=== PATIENT | male | born 1990 | race Caucasian/White ===

== ENCOUNTER 2019-02-19 21:41 | Emergency (ER) | payer OTHER, BC ==
[2019-02-19] MEDS ORDERED: Tetracaine HCl/PF 0.5% 4 ML Bottle EYEBOTH ONE (21:47)
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
== END 2019-02-19 22:10 | disposition home or self-care (01) ==
LOC: MW.ED 21:41
DX: S05.01XA Injury of conjunctiva and corneal abrasion without foreign body, right eye, initial encounter (principal); Z88.1 Allergy status to other antibiotic agents; X58.XXXA Exposure to other specified factors, initial encounter
CPT/HCPCS: 99283

== ENCOUNTER 2019-12-03 09:12 | Emergency (ER) | payer BC, OTHER ==
[2019-12-03] MEDS ORDERED: fentaNYL 50 MCG/ML SDV ONE (09:15)
[2019-12-03] MEDS ORDERED: Ondansetron 4 MG/2 ML SDV ONE (09:15)
[2019-12-03] MEDS ORDERED: Sodium Chloride 0.9% 1,000 ML IV ONE (09:22)
[2019-12-03] MEDS ORDERED: fentaNYL 50 MCG/ML SDV IVPUSH ONE ×2 (09:32→10:01)
[2019-12-03 09:53] LABS: BLOOD UREA NITROGEN,BUN 14 mg/dL (7.0-18.0); CARBON DIOXIDE,CO2 26.3 mmol/L (21.0-32.0); CHLORIDE,CL 102 mmol/L (98-107); GLUCOSE RANDOM 166 mg/dL (74-106); POTASSIUM,K 3.5 mmol/L (3.5-5.1); SODIUM,NA 138 mmol/L (136-148)
[2019-12-03] MEDS ORDERED: Ondansetron 4 MG/2 ML SDV IVPUSH ONE (10:02)
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
--- NOTE | 2019-12-03 10:10 | CT ---
CT cervical spine Technique: Multiple axial sections were obtained from above C1 inferiorly to the bottom of T2. Reconstructed sagittal and coronal images were reviewed. Comparison: No prior cervical spine imaging is available. Findings: Soft tissue air is noted anteriorly within the upper soft tissues of the chest. Vertebral body heights and disc spaces are maintained. Vertebral bodies and posterior arches are intact. No fracture is appreciated. No bony central or bony neural foraminal stenosis is seen. No subluxation is appreciated. Impression: 1. Nothing acute is appreciated on CT study of the cervical spine. Diagnostic code #1 This report was dictated in MDT
--- NOTE | 2019-12-03 10:15 | CT ---
CT chest Technique: Multiple axial sections were obtained from above the lung apices inferiorly through the lung bases. Intravenous contrast was utilized. Comparison: No prior chest imaging is available. Findings: Lungs show no acute parenchymal process. No pulmonary contusion or pleural effusions are identified. Mediastinum and hilar region show no adenopathy or mass. Aorta shows no aneurysm. No axillary adenopathy is appreciated. Bone window settings were reviewed which shows a burst fracture within T12. Severely retrolisthesis fragments are noted posteriorly into the central canal up to 1.5 cm which severely disrupts the width of the central canal and likely causes distal thoracic spinal cord damage. Fracture is noted within the right transverse process of L1. No other acute osseous abnormality is appreciated. Impression: 1. Burst fracture within the T12 vertebral body with severe retrolisthesis causing severe narrowing of the central canal diameter. This likely causes distal thoracic spinal cord injury. 2. Nondisplaced fracture within the right L1 transverse process. 3. Soft tissue air within the anterior upper chest raising the possibility of prior penetrating soft tissue trauma. 4. No other acute finding is appreciated. Diagnostic code #5 This report was dictated in MDT
--- NOTE | 2019-12-03 10:22 | CT ---
CT abdomen and pelvis Technique: Multiple axial sections were obtained from above the dome of the diaphragm inferiorly through the pubic symphysis. Intravenous contrast was utilized. No oral contrast has been given. Findings: Liver shows no discrete abnormality. Spleen appears within normal limits. Paraspinal soft tissue swelling/hematoma is noted at the level of a burst fracture involving T12. Aorta shows contrast enhancement without aneurysm. No retroperitoneal adenopathy or mesenteric abnormalities are seen. No pelvic mass or adenopathy is appreciated. No free fluid is seen. Kidneys show symmetric contrast enhancement. Kidneys show several small nonobstructing calculi. Pancreas appears within normal limits. Spleen appears normal. Gallbladder contains no calcified gallstones Bone window settings were reviewed. Burst fracture is again noted of T12 with retrolisthesis fragments severely narrowing the central canal. Minimally displaced fracture within the right transverse process of L1. No other acute osseous finding is appreciated. Impression: 1. Burst fracture of T12 severely narrowing the central canal. There is surrounding soft tissue hematoma/swelling within the paraspinal region. 2. Minimally displaced fracture within the right transverse process of L1. 3. Nothing acute is seen within the abdomen or pelvis. Diagnostic code #5 This report was dictated in MDT
--- NOTE | 2019-12-03 10:25 | CT ---
Head CT Technique: Multiple axial sections through the brain were obtained. Intravenous contrast was not utilized. Comparison: No prior intracranial imaging is available. Findings: Ventricles along with basal cisterns and sulci over the convexities are within normal limits for the patient's age. No abnormal parenchymal densities are seen. No evidence of intracranial hemorrhage. No midline shift or mass-effect is seen. Mucosal thickening is noted within both maxillary sinuses which is most likely chronic. No acute paranasal sinus finding is seen. No acute mastoid sinus finding is seen. No acute calvarial abnormality is appreciated. Impression: 1. Sinus findings most likely chronic. 2. No acute intracranial abnormality is appreciated. Diagnostic code #2 This report was dictated in MDT
[2019-12-03] MEDS ORDERED: Iopamidol 612 MG/ML 100 ML Bottle IVPUSH STA (10:27)
[2019-12-03] MEDS ORDERED: Iopamidol 755 Mg/ML 100 ML Bottle IVPUSH STA (10:28)
--- NOTE | 2019-12-03 10:34 | CT ---
CT lumbar spine Technique: Multiple axial sections were obtained from the top of T10 inferiorly through the bottom of L5-S1. Findings: Burst fracture is noted of L2. Significant retrolisthesis of fracture fragments into the central canal is seen which obliterates the central canal. Fracture fragments extend posteriorly up to 2.0 cm into the central canal. Loss of vertebral body height is noted. Fracture is noted within the right T11-12 apophyseal joint which involves the superior facet of T12. There is anterior subluxation of the apophyseal joint at T11 anterior to the apophyseal joint of T12 on the right side. Slight deformity is noted of the posterior ribs at the vertebral junction on the left side of T11 and T12 which likely represent rib fractures. Minimally displaced transverse process fracture on the right side at L1. No additional lumbar spine fracture is seen. No other findings of spondylolisthesis are seen Diffuse paraspinal hematoma and soft tissue swelling is seen around the T12 fracture. Impression: 1. Burst fracture of T12 with significant retrolisthesis of fracture fragments obliterating the central canal which is severe enough to disrupt the distal thoracic spinal cord. 2. Fracture within the superior apophyseal joint of T12 on the right side with the T11 apophyseal joint located anterior to the T12 apophyseal joint representing unilateral apophyseal dislocation. 3. Diffuse soft tissue swelling and hematoma around T12. 4. Minimally displaced transverse process fracture of L1. 5. Probable minimal rib fractures at the costovertebral junctions involving the left 11th and 12th ribs. Diagnostic code #5 This report was dictated in MDT
--- NOTE | 2019-12-03 10:45 | CT ---
Thoracic spine Technique: Multiple axial sections were obtained through the thoracic spine. Reconstructed coronal and sagittal images were obtained. Comparison: Burst fracture is noted of T12 with severe extension of fragments into the central canal. Apophyseal joint fracture and dislocation noted on the right side at T11-12. No additional thoracic spine fracture is appreciated. Slight deformity noted within the left ribs at the costovertebral junction of the 11th and 12th rib which are felt compatible with fractures. Impression: 1. Fractures within the posterior 11th and 12th ribs at the costovertebral junction. 2. Burst fracture involving T12 with displaced posterior fragments obliterating the central canal. 3. Right-sided apophyseal joint fracture with apophyseal joint dislocation at T11-12. Diagnostic code #5 This report was dictated in MDT
[2019-12-03] MEDS ORDERED: HYDROmorphone 1 MG/ML Syringe IVPUSH ONE (10:47)
[2019-12-03] MEDS ORDERED: Diphtheria,Pertussis(Acell),Tetanus Vaccine 0.5 ML Syringe IM ONE (11:00)
== END 2019-12-03 11:18 ==
LOC: MW.ED 09:12
DX: S22.081A Stable burst fracture of T11-T12 vertebra, initial encounter for closed fracture (principal); S10.93XA Contusion of unspecified part of neck, initial encounter; S60.512A Abrasion of left hand, initial encounter; S60.511A Abrasion of right hand, initial encounter; Z23 Encounter for immunization; Z88.1 Allergy status to other antibiotic agents; V48.5XXA Car driver injured in noncollision transport accident in traffic accident, initial encounter
CPT/HCPCS: 36415; 70450; 71260; 72125; 74177; 80053; 80307; 83735; 84484; 85025; 85610; 85730; 90471; 90715; 93005; 96361; 96374; 96375; 96376; 99285; J1170; J2405; J3010; J7030; Q9967; 72128; 72128-26; 72131; 72131-26; 99284

== ENCOUNTER 2020-05-03 16:12 | Emergency (ER) | payer MEDICAID ==
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
--- NOTE | 2020-05-03 17:08 | CR ---
INDICATION: Infection of right 2nd and 3rd toes. No feeling in the legs. Noticed infection 1 week ago. COMPARISON: None. TECHNIQUE: Right foot 3 views. FINDINGS: Bones are demineralized. Joint spaces are maintained. Soft tissues are unremarkable. No specific radiographic evidence of osteomyelitis. No acute fracture dislocation. IMPRESSION: No specific radiographic evidence of osteomyelitis. If there is ongoing clinical concern consider further evaluation with MRI. Dictated by Se Foster MD @ May 03 2020 5:06PM Signed by Dr. Se Foster @ May 03 2020 5:08PM
== END 2020-05-03 17:38 | disposition home or self-care (01) ==
LOC: MW.ED 16:12
DX: L89.892 Pressure ulcer of other site, stage 2 (principal); L08.9 Local infection of the skin and subcutaneous tissue, unspecified; Z88.0 Allergy status to penicillin
CPT/HCPCS: 73630-26-RT; 73630-RT; 99283; 99283-25

== ENCOUNTER 2020-10-10 22:24 | Emergency (ER) | payer MEDICAID ==
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
--- NOTE | 2020-10-10 23:52 | CR ---
INDICATION: Foot injury with deformity TECHNIQUE: Foot radiograph 3 views right COMPARISON: 05/03/2020 FINDINGS: Bone: No acute fractures or aggressive bone lesions are identified. Patchy osteopenia is noted within the foot and similar to prior exam. Joint: The visualized hindfoot, midfoot, and forefoot joints are unremarkable in appearance. No significant ankle effusion is seen. Soft tissue: Unremarkable. No radiopaque foreign bodies are seen. Miscellaneous: Mild subcutaneous edema is present along the dorsal midfoot. IMPRESSION: 1. No acute osseous injuries or abnormalities are noted. Dictated by Ousmane Macedo MD @ 10/10/2020 11:50:18 PM Dictated by: Ousmane Macedo MD @ 10/10/2020 23:50:22 (Electronically Signed)
--- NOTE | 2020-10-10 23:54 | CR ---
INDICATION: Tibia injury with deformity TECHNIQUE: Tibia-fibula radiograph 2 views right COMPARISON: None FINDINGS: Bone: Patchy osteopenia present in the periarticular regions of the knee and ankle. There is a transverse, nondisplaced fracture present of the lateral malleolus. Joint: The visualized knee and ankle joints are unremarkable. No significant joint effusion is seen. Soft tissue: Unremarkable. No radiopaque foreign bodies are seen. IMPRESSION: 1. There is a transverse, nondisplaced fracture present of the lateral malleolus. Dictated by Ousmane Macedo MD @ 10/10/2020 11:52:02 PM Dictated by: Ousmane Macedo MD @ 10/10/2020 23:52:09 (Electronically Signed)
== END 2020-10-11 01:00 | disposition home or self-care (01) ==
LOC: MW.ED 22:24
DX: S82.64XA Nondisplaced fracture of lateral malleolus of right fibula, initial encounter for closed fracture (principal); Z88.0 Allergy status to penicillin; W05.0XXA Fall from non-moving wheelchair, initial encounter
CPT/HCPCS: 73590-26-RT; 73590-RT; 73630-26-RT; 73630-RT; 99283; 99283-25

== ENCOUNTER 2022-10-18 22:16 | Emergency (ER) | payer BC, MEDICARE, OTHER ==
[2022-10-18] MEDS ORDERED: Sodium Chloride 0.9% 10 ML Syringe FLUSH PRN (22:50)
[2022-10-18] MEDS ORDERED: Sodium Chloride 0.9% 2.5 ML Syringe FLUSH PRN (22:50)
[2022-10-18] MEDS ORDERED: Cefepime 2 GM in Sodium Chloride 0.9% 50 ML IV ONE (22:52)
[2022-10-18] MEDS ORDERED: VANCOmycin 2 GM/400 ML 400 ML IV ONE (23:00)
[2022-10-18 23:29] LABS: BASOPHILS PERCENT AUTO 0.1 % (0.0-1.5); HEMATOCRIT 42.4 % (38.0-50.0); HEMOGLOBIN 14.5 g/dL (13.0-17.0); LYMPHOCYTES ABSOLUTE AUTO 1.1 K/uL (0.6-2.4); LYMPHOCYTES PERCENT AUTO 4.3 % (16.0-40.0); MEAN CORPUSCULAR HEMOGLOBIN 29.2 pg (27.0-32.0); MEAN CORPUSCULAR HGB CONC 34.2 g/dL (31.0-37.0); MEAN CORPUSCULAR VOLUME 85.5 fL (80.0-98.0); MONOCYTES ABSOLUTE AUTO 0.9 K/uL (0.0-0.8); MONOCYTES PERCENT AUTO 3.5 % (0.0-15.0); NEUTROPHILS ABSOLUTE AUTO 22.5 K/uL (1.4-5.7); NEUTROPHILS PERCENT AUTO 92.1 % (48.0-80.0); NRBC ABSOLUTE 0 K/uL; PLATELET COUNT,PLT 216 K/uL (150-400); RED BLOOD CELL COUNT 4.96 M/uL (4.50-5.90); WHITE BLOOD CELL COUNT,WBC 24.46 K/uL (4.0-11.0)
[2022-10-18 23:47] LABS: INR 1.34 (0.86-1.11)
[2022-10-18 23:52] LABS: A/G RATIO 0.5 (0.9-1.6); ALBUMIN 2.6 g/dL (3.4-5.0); BILIRUBIN TOTAL 1.2 mg/dL (0.2-1.0); CALCIUM 8.5 mg/dL (8.5-10.1); CARBON DIOXIDE,CO2 27.7 mmol/L (21.0-32.0); EST CRCL DRUG DOSING (CG) 86.93 mL/min; POTASSIUM,K 3.7 mmol/L (3.5-5.1); PROTEIN TOTAL,TP 7.4 g/dL (6.4-8.2)
[2022-10-18 23:57] LABS: LACTIC ACID 2.4 mmol/L (0.4-2.0)
[2022-10-19] MEDS ORDERED: metroNIDAZOLE/Normal Saline 500 MG in Premix Bag 1 BAG IV ONE (00:17)
[2022-10-19] MEDS ORDERED: Sodium Chloride 0.9% 1,000 ML IV ONE ×2 (00:36→02:51)
[2022-10-19] MEDS ORDERED: Acetaminophen 500 MG Tab PO ONE (02:50)
[2022-10-19] MEDS ORDERED: Sodium Chloride 0.9% 1,000 ML IV SCH (03:00)
[2022-10-19 05:29] LABS: APPEARANCE,URINE CLEAR; BILIRUBIN,URINE NEGATIVE (NEGATIVE); COLOR,URINE YELLOW; GLUCOSE,URINE NEGATIVE (NEGATIVE); KETONES,URINE 40 mg/dL (NEGATIVE); LEUKOCYTE ESTERASE,URINE NEGATIVE (NEGATIVE); NITRITE,URINE NEGATIVE (NEGATIVE); OCCULT BLOOD,URINE SMALL (NEGATIVE); PH,URINE 5.5 (5.0-8.0); PROTEIN,URINE TRACE mg/dL (NEGATIVE); UROBILINOGEN,URINE 0.2 EU/dL (<2.0)
[2022-10-19 05:46] LABS: BACTERIA,URINE FEW (NEGATIVE); EPITHELIAL CELLS,URINE FEW (NONE-FEW); WBC,URINE 0-2 (0-5/HPF)
[2022-10-19] MEDS ORDERED: VANCOmycin 1.25 GM/250 ML 250 ML IV SCH (11:00)
== END 2022-10-19 05:44 ==
LOC: MW.ED 22:16
DX: M72.6 Necrotizing fasciitis (principal); L89.319 Pressure ulcer of right buttock, unspecified stage; G82.20 Paraplegia, unspecified; F17.210 Nicotine dependence, cigarettes, uncomplicated; Z88.0 Allergy status to penicillin
CPT/HCPCS: 36415; 71045; 74177; 80053; 81001; 83605; 85025; 85610; 87040; 96361; 96365; 96366; 96367; 96368; 99285; A9270; J0692; J3370; J3490; J7030; 99284

== ENCOUNTER 2022-12-13 14:38 | Emergency (ER) | payer BC, MEDICARE ==
[2022-12-13] MEDS ORDERED: Sodium Chloride 0.9% 10 ML Syringe FLUSH PRN (15:04)
[2022-12-13] MEDS ORDERED: Sodium Chloride 0.9% 2.5 ML Syringe FLUSH PRN (15:04)
[2022-12-13] MEDS ORDERED: Meropenem 1 GM in Sodium Chloride 0.9% 100 ML IV ONE ×2 (15:04→16:00)
[2022-12-13 15:32] LABS: APPEARANCE,URINE CLEAR; BILIRUBIN,URINE NEGATIVE (NEGATIVE); COLOR,URINE YELLOW; GLUCOSE,URINE NEGATIVE (NEGATIVE); KETONES,URINE NEGATIVE (NEGATIVE); LEUKOCYTE ESTERASE,URINE NEGATIVE (NEGATIVE); NITRITE,URINE NEGATIVE (NEGATIVE); OCCULT BLOOD,URINE NEGATIVE (NEGATIVE); PROTEIN,URINE NEGATIVE (NEGATIVE); UROBILINOGEN,URINE 0.2 EU/dL (<2.0)
[2022-12-13] MEDS ORDERED: Acetaminophen 500 MG Tab PO ONE (15:35)
[2022-12-13 15:44] LABS: BASOPHILS PERCENT AUTO 0.2 % (0.0-1.5); EOSINOPHILS ABSOLUTE AUTO 0.1 K/uL (0.0-0.7); EOSINOPHILS PERCENT AUTO 0.5 % (0.0-7.0); HEMATOCRIT 41.6 % (38.0-50.0); HEMOGLOBIN 13.3 g/dL (13.0-17.0); LYMPHOCYTES ABSOLUTE AUTO 1.5 K/uL (0.6-2.4); LYMPHOCYTES PERCENT AUTO 10.8 % (16.0-40.0); MEAN CORPUSCULAR HEMOGLOBIN 27.3 pg (27.0-32.0); MEAN CORPUSCULAR VOLUME 85.4 fL (80.0-98.0); MONOCYTES ABSOLUTE AUTO 0.6 K/uL (0.0-0.8); NEUTROPHILS ABSOLUTE AUTO 11.7 K/uL (1.4-5.7); NEUTROPHILS PERCENT AUTO 84.5 % (48.0-80.0); NRBC ABSOLUTE 0 K/uL; PLATELET COUNT,PLT 483 K/uL (150-400); RED BLOOD CELL COUNT 4.87 M/uL (4.50-5.90); WHITE BLOOD CELL COUNT,WBC 13.84 K/uL (4.0-11.0)
[2022-12-13 15:56] LABS: BACTERIA,URINE RARE (NEGATIVE); EPITHELIAL CELLS,URINE OCCASIONAL (NONE-FEW); MUCUS,URINE LIGHT (NONE-MOD); RBC,URINE 0-2 (0-2/HPF)
[2022-12-13 16:18] LABS: A/G RATIO 0.6 (0.9-1.6); BILIRUBIN TOTAL 0.5 mg/dL (0.2-1.0); C-REACTIVE PROTEIN 4.3 mg/dL (0.00-0.90); CALCIUM 8.7 mg/dL (8.5-10.1); CARBON DIOXIDE,CO2 27.2 mmol/L (21.0-32.0); CREATININE 0.7 mg/dL (0.8-1.3); EST CRCL DRUG DOSING (CG) 123.06 mL/min; POTASSIUM,K 4.1 mmol/L (3.5-5.1); PROTEIN TOTAL,TP 8.2 g/dL (6.4-8.2)
[2022-12-13 16:21] LABS: LACTIC ACID 1.9 mmol/L (0.4-2.0)
== END 2022-12-13 18:07 ==
LOC: MW.ED 14:38
DX: A41.9 Sepsis, unspecified organism (principal); Z88.0 Allergy status to penicillin
CPT/HCPCS: 36415; 71045; 80053; 81001; 83605; 84145; 85025; 85610; 86140; 87040; 93005; 96365; 99291; 99292; A9270; J2185; J3490; J7030; 93010

== ENCOUNTER 2022-12-31 00:48 | Emergency (ER) | payer MEDICARE ==
[2022-12-31] MEDS ORDERED: Sodium Chloride 0.9% 1,000 ML IV ONE ×3 (03:32→03:37)
[2022-12-31] MEDS ORDERED: Sodium Chloride 0.9% 10 ML Syringe FLUSH PRN (03:32)
[2022-12-31] MEDS ORDERED: Sodium Chloride 0.9% 2.5 ML Syringe FLUSH PRN (03:32)
[2022-12-31] MEDS ORDERED: Cefepime 2 GM Vial IVPUSH ONE (03:35)
[2022-12-31] MEDS ORDERED: Acetaminophen 500 MG Tab PO ONE (03:38)
[2022-12-31 03:44] LABS: HEMATOCRIT 40.4 % (38.0-50.0); HEMOGLOBIN 13.2 g/dL (13.0-17.0); MEAN CORPUSCULAR HEMOGLOBIN 27.2 pg (27.0-32.0); MEAN CORPUSCULAR HGB CONC 32.7 g/dL (31.0-37.0); MEAN CORPUSCULAR VOLUME 83.1 fL (80.0-98.0); NRBC ABSOLUTE 0 K/uL; PLATELET COUNT,PLT 393 K/uL (150-400); RED BLOOD CELL COUNT 4.86 M/uL (4.50-5.90); WHITE BLOOD CELL COUNT,WBC 18.66 K/uL (4.0-11.0)
[2022-12-31 03:52] LABS: INR 1.02 (0.86-1.11)
[2022-12-31 03:59] LABS: A/G RATIO 0.7 (0.9-1.6); ALBUMIN 3.1 g/dL (3.4-5.0); BILIRUBIN TOTAL 0.8 mg/dL (0.2-1.0); CALCIUM 8.7 mg/dL (8.5-10.1); CARBON DIOXIDE,CO2 26.6 mmol/L (21.0-32.0); CREATININE 0.7 mg/dL (0.8-1.3); EST CRCL DRUG DOSING (CG) 123.06 mL/min; POTASSIUM,K 3.8 mmol/L (3.5-5.1); PROTEIN TOTAL,TP 7.7 g/dL (6.4-8.2)
[2022-12-31] MEDS ORDERED: VANCOmycin 1.75 GM/350 ML 350 ML IV ONE (04:00)
[2022-12-31 04:04] LABS: C-REACTIVE PROTEIN 14.5 mg/dL (0.00-0.90)
[2022-12-31 04:23] LABS: BAND ABSOLUTE MAN 0.2; BAND PERCENT MAN 1 %; LYMPHOCYTES ABSOLUTE MAN 2.1 (0.6-2.4); LYMPHOCYTES PERCENT MAN 11 % (16.0-40.0); MONOCYTES ABSOLUTE MAN 1.3 (0.0-0.8); MONOCYTES PERCENT MAN 7 % (0.0-15.0); SEG NEUTROPHILS ABSOLUTE MAN 15.1 (1.4-5.7); SEG NEUTROPHILS PERCENT MAN 81 % (48.0-80.0)
[2022-12-31] MEDS ORDERED: Water For Injection, Sterile 20 ML ONE (04:33)
[2022-12-31] MEDS ORDERED: Iopamidol 755 MG/ML 500 ML Multipack Bottle IVPUSH STA (04:37)
[2022-12-31 05:06] LABS: APPEARANCE,URINE SLT CLOUDY; BILIRUBIN,URINE NEGATIVE (NEGATIVE); GLUCOSE,URINE NEGATIVE (NEGATIVE); KETONES,URINE NEGATIVE (NEGATIVE); LEUKOCYTE ESTERASE,URINE NEGATIVE (NEGATIVE); NITRITE,URINE NEGATIVE (NEGATIVE); OCCULT BLOOD,URINE NEGATIVE (NEGATIVE); PROTEIN,URINE NEGATIVE (NEGATIVE); UROBILINOGEN,URINE 0.2 EU/dL (<2.0)
[2022-12-31 05:08] LABS: COLOR,URINE AMBER
[2022-12-31] MEDS ORDERED: cefTRIAXone 500 MG in Lidocaine 1% 1 ML IM ONE (07:54)
[2022-12-31] MEDS ORDERED: metroNIDAZOLE/Normal Saline 500 MG in Premix Bag 1 BAG IV SCH (08:30)
[2022-12-31] MEDS ORDERED: Naloxone 0.4 MG/ML SDV IVPUSH PRN (12:30)
[2022-12-31] MEDS ORDERED: Morphine 2 MG/ML SYRINGE IVPUSH ONE (12:30)
[2022-12-31] MEDS ORDERED: Ondansetron 4 MG/2 ML SDV IVPUSH ONE (12:31)
== END 2022-12-31 12:52 ==
LOC: MW.ED 00:48
DX: A41.9 Sepsis, unspecified organism (principal); M86.28 Subacute osteomyelitis, other site; Z88.0 Allergy status to penicillin
CPT/HCPCS: 36415; 71045; 74177; 80053; 81003; 83605; 83690; 85025; 85610; 86140; 87040; 87070; 87075; 87205; 96365; 96366; 96367; 96375; 99291; A9270; J0692; J2270; J2405; J3370; J3490; J7030; Q9967; 99285

== ENCOUNTER 2023-08-09 12:52 | Observation (INO) | payer MEDICARE ==
[2023-08-09] MEDS: Sodium Chloride 0.9% 1,000 ML IV ONE (14:07)
[2023-08-09] MEDS: Sodium Chloride 0.9% 2.5 ML Syringe FLUSH PRN (14:07)
[2023-08-09] MEDS: Sodium Chloride 0.9% 10 ML Syringe FLUSH PRN (14:07)
[2023-08-09 14:15] LABS: BASOPHILS ABSOLUTE AUTO 0.02 K/uL (0.00-0.20); BASOPHILS PERCENT AUTO 0.2 % (0.0-1.0); EOSINOPHILS ABSOLUTE AUTO 0.03 K/uL (0.00-0.45); EOSINOPHILS PERCENT AUTO 0.3 % (0.0-6.0); HEMATOCRIT 42.7 % (42.0-52.0); HEMOGLOBIN 14.6 g/dL (14.0-18.0); IMMATURE GRAN ABSOLUTE AUTO 0.05 K/uL (0.00-0.05); IMMATURE GRAN PERCENT AUTO 0.5 % (0.0-0.4); LYMPHOCYTES ABSOLUTE AUTO 1.12 K/uL (1.00-4.80); LYMPHOCYTES PERCENT AUTO 10.3 % (24.0-44.0); MEAN CORPUSCULAR HEMOGLOBIN 27.8 pg (28.0-32.0); MEAN CORPUSCULAR HGB CONC 34.2 g/dL (32.0-36.0); MEAN CORPUSCULAR VOLUME 81.2 fL (83.0-99.0); MEAN PLATELET VOLUME 9.3 fL (9.4-12.4); MONOCYTES ABSOLUTE AUTO 0.42 K/uL (0.00-0.80); MONOCYTES PERCENT AUTO 3.9 % (0.0-8.0); NEUTROPHILS ABSOLUTE AUTO 9.25 K/uL (1.80-7.70); NEUTROPHILS PERCENT AUTO 84.8 % (41.0-71.0); PLATELET COUNT,PLT 216 K/uL (150-400); RED BLOOD CELL COUNT 5.26 M/uL (4.52-5.90); WHITE BLOOD CELL COUNT,WBC 10.89 K/uL (3.9-11.3)
[2023-08-09 14:34] LABS: INR 1.12 (0.86-1.11)
[2023-08-09 14:43] LABS: A/G RATIO 0.7 (0.9-1.6); ALBUMIN 3.2 g/dL (3.4-5.0); BILIRUBIN TOTAL 1.1 mg/dL (0.2-1.0); CALCIUM 9.3 mg/dL (8.5-10.1); CARBON DIOXIDE,CO2 24.2 mmol/L (21.0-32.0); CREATININE 0.8 mg/dL (0.8-1.3); EST CRCL DRUG DOSING (CG) 112.03 mL/min; POTASSIUM,K 3.7 mmol/L (3.5-5.1); PROTEIN TOTAL,TP 7.8 g/dL (6.4-8.2)
[2023-08-09 14:47] LABS: LACTIC ACID 1.5 mmol/L (0.4-2.0)
[2023-08-09 15:17] LABS: APPEARANCE,URINE CLEAR; BILIRUBIN,URINE NEGATIVE (NEGATIVE); COLOR,URINE YELLOW; GLUCOSE,URINE NEGATIVE (NEGATIVE); KETONES,URINE NEGATIVE (NEGATIVE); LEUKOCYTE ESTERASE,URINE NEGATIVE (NEGATIVE); NITRITE,URINE NEGATIVE (NEGATIVE); OCCULT BLOOD,URINE TRACE-INTACT (NEGATIVE); PROTEIN,URINE TRACE mg/dL (NEGATIVE)
[2023-08-09 15:30] LABS: BACTERIA,URINE RARE (NEGATIVE); EPITHELIAL CELLS,URINE MODERATE (NONE-FEW); WBC,URINE 0-1 (0-5/HPF)
[2023-08-09] MEDS: Iopamidol 755 MG/ML 500 ML Multipack Bottle IVPUSH STA (15:41)
[2023-08-09 15:42] LABS: C-REACTIVE PROTEIN 31.16 mg/dL (<0.3)
[2023-08-09] MEDS: Cefepime 2 GM in Sodium Chloride 0.9% 50 ML IV ONE (18:09)
[2023-08-09] MEDS: VANCOmycin 1.5 GM/300 ML 1.5 GM in Premix Bag 1 BAG IV ONE (18:29)
[2023-08-09] MEDS ORDERED: Polyethylene Glycol 3350 Powder 17 GM Packet PO PRN (19:05)
[2023-08-09] MEDS ORDERED: Acetaminophen 325 MG Tab PO PRN (19:05)
[2023-08-09] MEDS ORDERED: Albuterol/Ipratropium 3.0-0.5 MG/3 ML Neb Soln NEB PRN (19:05)
[2023-08-09] MEDS ORDERED: Ondansetron 4 MG Tab.DIS PO PRN (19:05)
[2023-08-09] MEDS ORDERED: 50% Dextrose in Water 50 ML Syringe IVPUSH PRN (19:10)
[2023-08-09] MEDS ORDERED: Glucagon,Human Recombinant 1 MG Vial IM PRN (19:10)
[2023-08-09] MEDS ORDERED: Enoxaparin 40 MG/0.4 ML Syringe SUBCUT SCH (19:15)
[2023-08-09] MEDS ORDERED: Piperacillin/Tazobactam 4.5 GM in Sodium Chloride 0.9% 100 ML IV SCH (19:15)
[2023-08-09] MEDS: Sodium Chloride 0.9% 1,000 ML IV SCH (20:30)
[2023-08-09] MEDS: Piperacillin/Tazobactam 4.5 GM in Sodium Chloride 0.9% 100 ML IV ONE (20:31)
[2023-08-10] MEDS: Piperacillin/Tazobactam 4.5 GM in Sodium Chloride 0.9% 100 ML IV SCH (00:43)
[2023-08-10] MEDS: Acetaminophen/HYDROcodone 325-10 MG Tab PO PRN (03:45)
[2023-08-10] MEDS: VANCOmycin 1.5 GM/300 ML 1.5 GM in Premix Bag 1 BAG IV SCH (06:10)
[2023-08-10 06:11] LABS: BASOPHILS ABSOLUTE AUTO 0.04 K/uL (0.00-0.20); BASOPHILS PERCENT AUTO 0.5 % (0.0-1.0); EOSINOPHILS ABSOLUTE AUTO 0.14 K/uL (0.00-0.45); EOSINOPHILS PERCENT AUTO 1.7 % (0.0-6.0); HEMATOCRIT 40.7 % (42.0-52.0); HEMOGLOBIN 13.6 g/dL (14.0-18.0); IMMATURE GRAN ABSOLUTE AUTO 0.03 K/uL (0.00-0.05); IMMATURE GRAN PERCENT AUTO 0.4 % (0.0-0.4); LYMPHOCYTES ABSOLUTE AUTO 1.29 K/uL (1.00-4.80); LYMPHOCYTES PERCENT AUTO 16.1 % (24.0-44.0); MEAN CORPUSCULAR HGB CONC 33.4 g/dL (32.0-36.0); MEAN CORPUSCULAR VOLUME 83.7 fL (83.0-99.0); MEAN PLATELET VOLUME 9.5 fL (9.4-12.4); MONOCYTES ABSOLUTE AUTO 0.42 K/uL (0.00-0.80); MONOCYTES PERCENT AUTO 5.2 % (0.0-8.0); NEUTROPHILS ABSOLUTE AUTO 6.11 K/uL (1.80-7.70); NEUTROPHILS PERCENT AUTO 76.1 % (41.0-71.0); PLATELET COUNT,PLT 206 K/uL (150-400); RED BLOOD CELL COUNT 4.86 M/uL (4.52-5.90); WHITE BLOOD CELL COUNT,WBC 8.03 K/uL (3.9-11.3)
[2023-08-10 06:38] LABS: A/G RATIO 0.6 (0.9-1.6); ALBUMIN 2.7 g/dL (3.4-5.0); BILIRUBIN TOTAL 0.8 mg/dL (0.2-1.0); CALCIUM 8.7 mg/dL (8.5-10.1); CARBON DIOXIDE,CO2 25.8 mmol/L (21.0-32.0); CREATININE 0.9 mg/dL (0.8-1.3); EST CRCL DRUG DOSING (CG) 99.58 mL/min; PROTEIN TOTAL,TP 6.9 g/dL (6.4-8.2)
[2023-08-10] MEDS: Enoxaparin 40 MG/0.4 ML Syringe SUBCUT SCH (08:11)
[2023-08-10] MEDS: Insulin Aspart 100 Units/ML 3 ML Pen SUBCUT SCH (08:11)
[2023-08-10] MEDS: Insulin Glargine,Hum.Rec.Anlog 100 UNIT/ML 3 ML Pen SUBCUT SCH (15:05)
[2023-08-11 06:50] LABS: BASOPHILS ABSOLUTE AUTO 0.03 K/uL (0.00-0.20); BASOPHILS PERCENT AUTO 0.5 % (0.0-1.0); EOSINOPHILS ABSOLUTE AUTO 0.22 K/uL (0.00-0.45); HEMATOCRIT 40.4 % (42.0-52.0); HEMOGLOBIN 13.8 g/dL (14.0-18.0); IMMATURE GRAN ABSOLUTE AUTO 0.03 K/uL (0.00-0.05); IMMATURE GRAN PERCENT AUTO 0.5 % (0.0-0.4); LYMPHOCYTES ABSOLUTE AUTO 1.51 K/uL (1.00-4.80); LYMPHOCYTES PERCENT AUTO 27.6 % (24.0-44.0); MEAN CORPUSCULAR HEMOGLOBIN 28.3 pg (28.0-32.0); MEAN CORPUSCULAR HGB CONC 34.2 g/dL (32.0-36.0); MEAN PLATELET VOLUME 9.7 fL (9.4-12.4); MONOCYTES ABSOLUTE AUTO 0.27 K/uL (0.00-0.80); MONOCYTES PERCENT AUTO 4.9 % (0.0-8.0); NEUTROPHILS ABSOLUTE AUTO 3.42 K/uL (1.80-7.70); NEUTROPHILS PERCENT AUTO 62.5 % (41.0-71.0); PLATELET COUNT,PLT 250 K/uL (150-400); RED BLOOD CELL COUNT 4.87 M/uL (4.52-5.90); WHITE BLOOD CELL COUNT,WBC 5.48 K/uL (3.9-11.3)
[2023-08-11 07:30] LABS: A/G RATIO 0.7 (0.9-1.6); ALBUMIN 2.7 g/dL (3.4-5.0); BILIRUBIN TOTAL 0.6 mg/dL (0.2-1.0); CALCIUM 8.2 mg/dL (8.5-10.1); CARBON DIOXIDE,CO2 23.1 mmol/L (21.0-32.0); CREATININE 0.8 mg/dL (0.8-1.3); EST CRCL DRUG DOSING (CG) 112.03 mL/min; POTASSIUM,K 3.7 mmol/L (3.5-5.1); PROTEIN TOTAL,TP 6.8 g/dL (6.4-8.2)
== END 2023-08-11 14:05 | disposition home or self-care (01) ==
LOC: MW.ED 12:52 → MW.MS 19:03 → INTOOBSV 19:03
PROVIDERS: ADMIT Family Medicine; ATTEND Family Medicine
DX: L89.44 Pressure ulcer of contiguous site of back, buttock and hip, stage 4 (principal); L02.31 Cutaneous abscess of buttock; L03.317 Cellulitis of buttock; E11.9 Type 2 diabetes mellitus without complications; Z79.4 Long term (current) use of insulin; Z79.899 Other long term (current) drug therapy; Z88.0 Allergy status to penicillin
CPT/HCPCS: 36415; 71045; 74177; 80053; 80202; 81001; 82947; 83605; 83690; 85025; 85610; 85652; 86140; 87040; 96361; 96365; 96366; 96367; 96372; 99285; A9270; G0378; J0692; J1650; J1815; J2543; J3370; J3490; J7030; Q9967; 99222; 99232; 99239; 99284

== ENCOUNTER 2024-04-15 15:28 | Emergency (ER) | payer MEDICARE, OTHER ==
[2024-04-15] MEDS: Sodium Chloride 0.9% 1,000 ML IV SCH (17:15)
[2024-04-15] MEDS: cefTRIAXone 2 GM in Sodium Chloride 0.9% 50 ML IV ONE (17:15)
[2024-04-15 17:29] LABS: BASOPHILS ABSOLUTE AUTO 0.02 K/uL (0.00-0.20); BASOPHILS PERCENT AUTO 0.2 % (0.0-1.0); EOSINOPHILS ABSOLUTE AUTO 0.07 K/uL (0.00-0.45); EOSINOPHILS PERCENT AUTO 0.7 % (0.0-6.0); HEMATOCRIT 42.7 % (42.0-52.0); HEMOGLOBIN 14.5 g/dL (14.0-18.0); IMMATURE GRAN ABSOLUTE AUTO 0.03 K/uL (0.00-0.05); IMMATURE GRAN PERCENT AUTO 0.3 % (0.0-0.4); LYMPHOCYTES ABSOLUTE AUTO 1.43 K/uL (1.00-4.80); LYMPHOCYTES PERCENT AUTO 14.5 % (24.0-44.0); MEAN CORPUSCULAR HEMOGLOBIN 28.2 pg (28.0-32.0); MEAN CORPUSCULAR VOLUME 83.1 fL (83.0-99.0); MONOCYTES ABSOLUTE AUTO 0.76 K/uL (0.00-0.80); MONOCYTES PERCENT AUTO 7.7 % (0.0-8.0); NEUTROPHILS ABSOLUTE AUTO 7.53 K/uL (1.80-7.70); NEUTROPHILS PERCENT AUTO 76.6 % (41.0-71.0); PLATELET COUNT,PLT 271 K/uL (150-400); RED BLOOD CELL COUNT 5.14 M/uL (4.52-5.90); WHITE BLOOD CELL COUNT,WBC 9.84 K/uL (3.9-11.3)
[2024-04-15 17:52] LABS: A/G RATIO 0.5 (0.9-1.6); ALBUMIN 2.7 g/dL (3.4-5.0); BILIRUBIN TOTAL 0.6 mg/dL (0.2-1.0); CALCIUM 9.1 mg/dL (8.5-10.1); CARBON DIOXIDE,CO2 28.9 mmol/L (21.0-32.0); CREATININE 0.7 mg/dL (0.8-1.3); EST CRCL DRUG DOSING (CG) 126.86 mL/min; POTASSIUM,K 3.8 mmol/L (3.5-5.1); PROTEIN TOTAL,TP 7.8 g/dL (6.4-8.2)
[2024-04-15] MEDS: Ondansetron 4 MG/2 ML SDV ONE (18:09)
== END 2024-04-15 18:14 | disposition home or self-care (01) ==
LOC: MW.ED 15:28
DX: L03.317 Cellulitis of buttock (principal); E11.9 Type 2 diabetes mellitus without complications; Z88.0 Allergy status to penicillin; Z79.4 Long term (current) use of insulin; Z79.899 Other long term (current) drug therapy
CPT/HCPCS: 36415; 80053; 85025; 96365; 99283; J0696; J3490; J7030

== ENCOUNTER 2024-11-03 16:15 | Emergency (ER) | payer MEDICARE, OTHER ==
[2024-11-03] MEDS ORDERED: Sodium Chloride 0.9% 10 ML Syringe FLUSH PRN (17:17)
[2024-11-03] MEDS ORDERED: Sodium Chloride 0.9% 2.5 ML Syringe FLUSH PRN (17:17)
[2024-11-03] MEDS: cefTRIAXone 2 GM in Water For Injection, Sterile 20 ML IVPUSH ONE (17:28)
[2024-11-03] MEDS: Lactated Ringers 1,000 ML IV ONE (17:29)
[2024-11-03 17:35] LABS: BASOPHILS ABSOLUTE AUTO 0.03 K/uL (0.00-0.20); BASOPHILS PERCENT AUTO 0.3 % (0.0-1.0); EOSINOPHILS ABSOLUTE AUTO 0.07 K/uL (0.00-0.45); EOSINOPHILS PERCENT AUTO 0.6 % (0.0-6.0); IMMATURE GRAN ABSOLUTE AUTO 0.05 K/uL (0.00-0.05); IMMATURE GRAN PERCENT AUTO 0.4 % (0.0-0.4); LYMPHOCYTES ABSOLUTE AUTO 1.53 K/uL (1.00-4.80); LYMPHOCYTES PERCENT AUTO 13.7 % (24.0-44.0); MEAN PLATELET VOLUME 9.4 fL (9.4-12.4); MONOCYTES ABSOLUTE AUTO 0.74 K/uL (0.00-0.80); MONOCYTES PERCENT AUTO 6.6 % (0.0-8.0); NEUTROPHILS ABSOLUTE AUTO 8.75 K/uL (1.80-7.70); NEUTROPHILS PERCENT AUTO 78.4 % (41.0-71.0); NRBC ABSOLUTE 0.00 K/uL (0.00-0.02); NRBC PERCENT 0.0 /100WBC (0.0-0.2); PLATELET COUNT,PLT 275 K/uL (150-400); RED BLOOD CELL COUNT 5.32 M/uL (4.52-5.90); WHITE BLOOD CELL COUNT,WBC 11.17 K/uL (3.9-11.3)
[2024-11-03 17:40] LABS: APPEARANCE,URINE CLEAR; GLUCOSE,URINE >=1000 mg/dL (NEGATIVE); OCCULT BLOOD,URINE TRACE-INTACT (NEGATIVE)
[2024-11-03 17:43] LABS: A/G RATIO 0.6 (0.9-1.6); ALANINE AMINOTRANSFERASE,ALT 56.0 IU/L (14-63); ASPARTATE AMNIOTRANSFERASE,AST 26.0 IU/L (15-37); BILIRUBIN TOTAL 0.7 mg/dL (0.2-1.0); BLOOD UREA NITROGEN,BUN 7.0 mg/dL (7.0-18.0); CARBON DIOXIDE,CO2 31.4 mmol/L (21.0-32.0); CHLORIDE,CL 95.0 mmol/L (98-107); CREATININE 0.8 mg/dL (0.8-1.3); EST CRCL DRUG DOSING (CG) 107.84 mL/min; GLUCOSE RANDOM 421.0 mg/dL (74-106); POTASSIUM,K 4.4 mmol/L (3.5-5.1); PROTEIN TOTAL,TP 8.1 g/dL (6.4-8.2); SODIUM,NA 132.0 mmol/L (136-148)
[2024-11-03 17:46] LABS: EPITHELIAL CELLS,URINE NOT SEEN (NONE-FEW)
[2024-11-03 17:53] LABS: ESTIMATED GFR 120.0 mL/min (>60)
[2024-11-03] MEDS ORDERED: 50% Dextrose in Water 50 ML Syringe IVPUSH PRN (18:26)
[2024-11-03 18:32] LABS: LACTIC ACID 1.9 mmol/L (0.4-2.0)
[2024-11-03 18:47] LABS: BASE EXCESS VENOUS 6.0 (-2.0-3.0); BICARBONATE,VENOUS 31.0 mEq/L (22-29); PCO2 VENOUS 43.0 mmHG (41-51); PH,VENOUS 7.46 (7.32-7.43); PO2 VENOUS 34.0 mmHG (35-45)
[2024-11-03] MEDS: Insulin Regular, Human 100 Units/ML 10 ML Vial IVPUSH ONE (18:49)
[2024-11-03] MEDS: Ondansetron 4 MG/2 ML SDV IVPUSH ONE (19:01)
[2024-11-03] MEDS: Iopamidol 755 Mg/ML 100 ML Bottle IVPUSH ONE (19:37)
== END 2024-11-03 20:56 | disposition home or self-care (01) ==
LOC: MW.ED 16:15
DX: L89.44 Pressure ulcer of contiguous site of back, buttock and hip, stage 4 (principal); L03.115 Cellulitis of right lower limb; I10 Essential (primary) hypertension; E11.9 Type 2 diabetes mellitus without complications; Z88.1 Allergy status to other antibiotic agents; Z79.899 Other long term (current) drug therapy; Z79.4 Long term (current) use of insulin
CPT/HCPCS: 36415; 71045; 72193; 80053; 81001; 82009; 82803; 82947; 83605; 83735; 85025; 87040; 93005; 96374; 96375; 99284; A9270; J0696; J1815; J2270; J2405; J7120; Q9967

== ENCOUNTER 2025-01-05 22:57 | Emergency (ER) | payer MEDICARE ==
[2025-01-05 23:48] LABS: BASOPHILS ABSOLUTE AUTO 0.04 K/uL (0.00-0.20); BASOPHILS PERCENT AUTO 0.2 % (0.0-1.0); EOSINOPHILS ABSOLUTE AUTO 0.00 K/uL (0.00-0.45); EOSINOPHILS PERCENT AUTO 0.0 % (0.0-6.0); IMMATURE GRAN ABSOLUTE AUTO 0.14 K/uL (0.00-0.05); IMMATURE GRAN PERCENT AUTO 0.7 % (0.0-0.4); LYMPHOCYTES ABSOLUTE AUTO 0.67 K/uL (1.00-4.80); LYMPHOCYTES PERCENT AUTO 3.5 % (24.0-44.0); MEAN PLATELET VOLUME 9.1 fL (9.4-12.4); MONOCYTES ABSOLUTE AUTO 0.70 K/uL (0.00-0.80); MONOCYTES PERCENT AUTO 3.7 % (0.0-8.0); NEUTROPHILS ABSOLUTE AUTO 17.35 K/uL (1.80-7.70); NEUTROPHILS PERCENT AUTO 91.9 % (41.0-71.0); NRBC ABSOLUTE 0.00 K/uL (0.00-0.02); NRBC PERCENT 0.0 /100WBC (0.0-0.2); PLATELET COUNT,PLT 317 K/uL (150-400); RED BLOOD CELL COUNT 5.11 M/uL (4.52-5.90); WHITE BLOOD CELL COUNT,WBC 18.90 K/uL (3.9-11.3)
[2025-01-05] MEDS ORDERED: Meropenem 500 MG SDV IVPUSH ONE (23:56)
[2025-01-06 00:09] LABS: A/G RATIO 0.4 (0.9-1.6); ALANINE AMINOTRANSFERASE,ALT 73 IU/L (14-63); ASPARTATE AMNIOTRANSFERASE,AST 66 IU/L (15-37); BILIRUBIN TOTAL 0.7 mg/dL (0.2-1.0); BLOOD UREA NITROGEN,BUN 6 mg/dL (7.0-18.0); CARBON DIOXIDE,CO2 28.6 mmol/L (21.0-32.0); CHLORIDE,CL 90 mmol/L (98-107); CREATININE 0.8 mg/dL (0.8-1.3); GLUCOSE RANDOM 154 mg/dL (74-106); POTASSIUM,K 3.1 mmol/L (3.5-5.1); PROTEIN TOTAL,TP 7.6 g/dL (6.4-8.2); SODIUM,NA 128 mmol/L (136-148)
[2025-01-06 00:12] LABS: LACTIC ACID 1.6 mmol/L (0.4-2.0)
[2025-01-06] MEDS: Ondansetron 4 MG/2 ML SDV IVPUSH ONE (00:19)
[2025-01-06] MEDS: Sodium Chloride 0.9% 2.5 ML Syringe FLUSH PRN (00:19)
[2025-01-06] MEDS: Sodium Chloride 0.9% 10 ML Syringe FLUSH PRN (00:19)
[2025-01-06] MEDS: VANCOmycin 1.75 GM/350 ML 1.75 GM in Premix Bag 1 BAG IV ONE (00:21)
[2025-01-06 00:23] LABS: ESTIMATED GFR 120 mL/min (>60)
[2025-01-06] MEDS: Iopamidol 755 MG/ML 500 ML Multipack Bottle IVPUSH ONE (00:37)
[2025-01-06 01:44] LABS: APPEARANCE,URINE CLEAR; GLUCOSE,URINE NEGATIVE (NEGATIVE); OCCULT BLOOD,URINE TRACE-LYSED (NEGATIVE)
[2025-01-06] MEDS: Magnesium Sulfate 2 GM/50 mL 2 GM in Premix Bag 1 BAG IV ONE (01:51)
[2025-01-06 02:03] LABS: EPITHELIAL CELLS,URINE NOT SEEN (NONE-FEW)
[2025-01-06] MEDS: Norepinephrine Bit/D5W Premix 250 ML IV SCH (03:11)
== END 2025-01-06 03:36 ==
LOC: MW.ED 22:57
DX: A41.9 Sepsis, unspecified organism (principal); R65.20 Severe sepsis without septic shock; N49.3 Fournier gangrene; M62.3 Immobility syndrome (paraplegic); E87.6 Hypokalemia; E87.1 Hypo-osmolality and hyponatremia; R94.31 Abnormal electrocardiogram [ECG] [EKG]; E86.0 Dehydration; E11.9 Type 2 diabetes mellitus without complications; Z88.0 Allergy status to penicillin; Z79.4 Long term (current) use of insulin; Z79.899 Other long term (current) drug therapy
CPT/HCPCS: 36415; 71045; 74177; 80053; 81001; 83605; 84484; 85025; 87040; 87154; 93005; 96365; 96366; 96367; 96368; 99285; A9270; J2185; J2405; J3375; J3475; J7030; Q9967; 93010

== ENCOUNTER 2025-01-30 19:51 | Emergency (ER) | payer MEDICARE ==
[2025-01-30] MEDS ORDERED: Sodium Chloride 0.9% 10 ML Syringe FLUSH PRN (20:20)
[2025-01-30] MEDS ORDERED: Sodium Chloride 0.9% 2.5 ML Syringe FLUSH PRN (20:20)
[2025-01-30 20:31] LABS: BASOPHILS ABSOLUTE AUTO 0.03 K/uL (0.00-0.20); BASOPHILS PERCENT AUTO 0.3 % (0.0-1.0); EOSINOPHILS ABSOLUTE AUTO 0.12 K/uL (0.00-0.45); EOSINOPHILS PERCENT AUTO 1.1 % (0.0-6.0); IMMATURE GRAN ABSOLUTE AUTO 0.03 K/uL (0.00-0.05); IMMATURE GRAN PERCENT AUTO 0.3 % (0.0-0.4); LYMPHOCYTES ABSOLUTE AUTO 1.60 K/uL (1.00-4.80); LYMPHOCYTES PERCENT AUTO 15.1 % (24.0-44.0); MEAN PLATELET VOLUME 8.4 fL (9.4-12.4); MONOCYTES ABSOLUTE AUTO 0.89 K/uL (0.00-0.80); MONOCYTES PERCENT AUTO 8.4 % (0.0-8.0); NEUTROPHILS ABSOLUTE AUTO 7.95 K/uL (1.80-7.70); NEUTROPHILS PERCENT AUTO 74.8 % (41.0-71.0); NRBC ABSOLUTE 0.00 K/uL (0.00-0.02); NRBC PERCENT 0.0 /100WBC (0.0-0.2); PLATELET COUNT,PLT 467 K/uL (150-400); RED BLOOD CELL COUNT 4.29 M/uL (4.52-5.90); WHITE BLOOD CELL COUNT,WBC 10.62 K/uL (3.9-11.3)
[2025-01-30 20:44] LABS: INR 1.08 (0.86-1.11)
[2025-01-30 21:07] LABS: A/G RATIO 0.4 (0.9-1.6); ALANINE AMINOTRANSFERASE,ALT 51 IU/L (14-63); ASPARTATE AMNIOTRANSFERASE,AST 25 IU/L (15-37); BILIRUBIN TOTAL 0.4 mg/dL (0.2-1.0); BLOOD UREA NITROGEN,BUN 11 mg/dL (7.0-18.0); CARBON DIOXIDE,CO2 25.3 mmol/L (21.0-32.0); CHLORIDE,CL 96 mmol/L (98-107); CREATININE 0.7 mg/dL (0.8-1.3); GLUCOSE RANDOM 145 mg/dL (74-106); POTASSIUM,K 3.3 mmol/L (3.5-5.1); PROTEIN TOTAL,TP 8.0 g/dL (6.4-8.2); SODIUM,NA 134 mmol/L (136-148)
[2025-01-30 21:09] LABS: ESTIMATED GFR 125 mL/min (>60)
[2025-01-30 21:12] LABS: LACTIC ACID 0.7 mmol/L (0.4-2.0)
[2025-01-30] MEDS: Sodium Hypochlorite 0.25% Soln 473 ML TOP SCH (21:24)
[2025-01-30] MEDS: Clindamycin Phosphate in D5W 900 MG in Premix Bag 1 BAG IV ONE (21:31)
[2025-01-30 21:49] LABS: GLUCOSE,URINE NEGATIVE (NEGATIVE); OCCULT BLOOD,URINE SMALL (NEGATIVE)
[2025-01-30 21:51] LABS: APPEARANCE,URINE SLT CLOUDY; EPITHELIAL CELLS,URINE NOT SEEN (NONE-FEW)
[2025-01-30] MEDS: Iopamidol 755 MG/ML 500 ML Multipack Bottle IVPUSH STA (22:40)
[2025-01-30] MEDS: Norepinephrine Bit/D5W Premix 4 MG/250 ML BAG IV SCH (23:57)
[2025-01-30] MEDS: Norepinephrine Bit/D5W Premix 4 MG/250 ML BAG ONE (23:59)
== END 2025-01-31 03:33 ==
LOC: MW.ED 19:51
DX: T81.44XA Sepsis following a procedure, initial encounter (principal); S31.000A Unspecified open wound of lower back and pelvis without penetration into retroperitoneum, initial encounter; E87.6 Hypokalemia; N49.3 Fournier gangrene; N39.0 Urinary tract infection, site not specified; E11.9 Type 2 diabetes mellitus without complications; Z88.0 Allergy status to penicillin; Z79.4 Long term (current) use of insulin; Z79.899 Other long term (current) drug therapy; X58.XXXA Exposure to other specified factors, initial encounter
CPT/HCPCS: 36415; 74177; 80053; 81001; 83605; 85025; 85610; 87040; 87086; 87088; 87186; 93005; 96365; 96366; 96367; 96368; 96375; 99285; A9270; J2543; J3374; J7030; J7050; Q9967; 99291; 99292; J0736; J1171; J3490

== ENCOUNTER 2025-03-13 18:05 | Emergency (ER) | payer MEDICARE | END 2025-03-13 21:24 | disposition home or self-care (01) | LOC: MW.ED 18:05 | DX: T82.594A Other mechanical complication of infusion catheter, initial encounter (principal); E11.9 Type 2 diabetes mellitus without complications; Z88.0 Allergy status to penicillin; Z79.4 Long term (current) use of insulin; Z79.899 Other long term (current) drug therapy | CPT/HCPCS: 51702; 99283 ==

== ENCOUNTER 2025-03-14 07:47 | Emergency (ER) | payer MEDICARE | END 2025-03-14 10:03 | disposition home or self-care (01) | LOC: MW.ED 07:47 | DX: T82.868A Thrombosis due to vascular prosthetic devices, implants and grafts, initial encounter (principal); E11.9 Type 2 diabetes mellitus without complications; Z88.0 Allergy status to penicillin; Z79.4 Long term (current) use of insulin; Z79.899 Other long term (current) drug therapy | CPT/HCPCS: 36410; 36573; 99152; 99283 ==

== ENCOUNTER 2025-03-18 22:55 | Emergency (ER) | payer MEDICARE ==
[2025-03-18] MEDS: Ketorolac 30 MG/ML SDV IVPUSH ONE (23:28)
[2025-03-18 23:43] LABS: BASOPHILS ABSOLUTE AUTO 0.03 K/uL (0.00-0.20); BASOPHILS PERCENT AUTO 0.3 % (0.0-1.0); EOSINOPHILS ABSOLUTE AUTO 0.28 K/uL (0.00-0.45); EOSINOPHILS PERCENT AUTO 3.1 % (0.0-6.0); IMMATURE GRAN ABSOLUTE AUTO 0.03 K/uL (0.00-0.05); IMMATURE GRAN PERCENT AUTO 0.3 % (0.0-0.4); LYMPHOCYTES ABSOLUTE AUTO 1.39 K/uL (1.00-4.80); LYMPHOCYTES PERCENT AUTO 15.6 % (24.0-44.0); MEAN PLATELET VOLUME 8.8 fL (9.4-12.4); MONOCYTES ABSOLUTE AUTO 0.52 K/uL (0.00-0.80); MONOCYTES PERCENT AUTO 5.8 % (0.0-8.0); NEUTROPHILS ABSOLUTE AUTO 6.68 K/uL (1.80-7.70); NEUTROPHILS PERCENT AUTO 74.9 % (41.0-71.0); NRBC ABSOLUTE 0.00 K/uL (0.00-0.02); NRBC PERCENT 0.0 /100WBC (0.0-0.2); PLATELET COUNT,PLT 430 K/uL (150-400); RED BLOOD CELL COUNT 4.79 M/uL (4.52-5.90); WHITE BLOOD CELL COUNT,WBC 8.93 K/uL (3.9-11.3)
[2025-03-19 00:10] LABS: A/G RATIO 0.6 (0.9-1.6); ALANINE AMINOTRANSFERASE,ALT 68.0 IU/L (14-63); ASPARTATE AMNIOTRANSFERASE,AST 32.0 IU/L (15-37); BILIRUBIN TOTAL 0.3 mg/dL (0.2-1.0); BLOOD UREA NITROGEN,BUN 15.0 mg/dL (7.0-18.0); CARBON DIOXIDE,CO2 27.1 mmol/L (21.0-32.0); CHLORIDE,CL 101.0 mmol/L (98-107); CREATININE 0.7 mg/dL (0.8-1.3); EST CRCL DRUG DOSING (CG) 120.8 mL/min; GLUCOSE RANDOM 174.0 mg/dL (74-106); POTASSIUM,K 3.5 mmol/L (3.5-5.1); PROTEIN TOTAL,TP 7.3 g/dL (6.4-8.2); SODIUM,NA 137.0 mmol/L (136-148)
[2025-03-19 00:11] LABS: ESTIMATED GFR 125.0 mL/min (>60)
[2025-03-19 00:15] LABS: LACTIC ACID 1.3 mmol/L (0.4-2.0)
[2025-03-19] MEDS: Magnesium Sulfate 2 GM/50 mL 2 GM in Premix Bag 1 BAG IV ONE (00:16)
[2025-03-19 00:31] LABS: APPEARANCE,URINE SLT CLOUDY; GLUCOSE,URINE NEGATIVE (NEGATIVE); OCCULT BLOOD,URINE MODERATE (NEGATIVE)
[2025-03-19 00:43] LABS: EPITHELIAL CELLS,URINE FEW (NONE-FEW)
[2025-03-19 00:44] LABS: YEAST,URINE FEW
== END 2025-03-19 01:12 | disposition home or self-care (01) ==
LOC: MW.ED 22:55
DX: R00.0 Tachycardia, unspecified (principal); E83.42 Hypomagnesemia; R50.9 Fever, unspecified; E86.0 Dehydration; E11.9 Type 2 diabetes mellitus without complications; Z86.2 Personal history of diseases of the blood and blood-forming organs and certain disorders involving the immune mechanism; Z87.311 Personal history of (healed) other pathological fracture; Z87.2 Personal history of diseases of the skin and subcutaneous tissue; Z86.69 Personal history of other diseases of the nervous system and sense organs; Z95.9 Presence of cardiac and vascular implant and graft, unspecified; Z88.0 Allergy status to penicillin; Z79.899 Other long term (current) drug therapy; Z79.4 Long term (current) use of insulin
CPT/HCPCS: 36415; 71045; 80053; 81001; 83036; 83605; 83690; 83735; 85025; 86308; 87040; 87086; 87428; 87651; 96361; 96365; 96375; 99283; J3475; J7030; J1885

== ENCOUNTER 2025-03-26 16:42 | Emergency (ER) | payer MEDICARE ==
[2025-03-26] MEDS ORDERED: Sodium Chloride 0.9% 10 ML Syringe FLUSH PRN (17:54)
[2025-03-26] MEDS ORDERED: Sodium Chloride 0.9% 2.5 ML Syringe FLUSH PRN (17:54)
[2025-03-26 18:01] LABS: BASOPHILS ABSOLUTE AUTO 0.06 K/uL (0.00-0.20); BASOPHILS PERCENT AUTO 0.3 % (0.0-1.0); EOSINOPHILS ABSOLUTE AUTO 0.01 K/uL (0.00-0.45); EOSINOPHILS PERCENT AUTO 0.1 % (0.0-6.0); IMMATURE GRAN ABSOLUTE AUTO 0.10 K/uL (0.00-0.05); IMMATURE GRAN PERCENT AUTO 0.6 % (0.0-0.4); LYMPHOCYTES ABSOLUTE AUTO 1.61 K/uL (1.00-4.80); LYMPHOCYTES PERCENT AUTO 8.9 % (24.0-44.0); MEAN PLATELET VOLUME 8.4 fL (9.4-12.4); MONOCYTES ABSOLUTE AUTO 1.03 K/uL (0.00-0.80); MONOCYTES PERCENT AUTO 5.7 % (0.0-8.0); NEUTROPHILS ABSOLUTE AUTO 15.20 K/uL (1.80-7.70); NEUTROPHILS PERCENT AUTO 84.4 % (41.0-71.0); NRBC ABSOLUTE 0.00 K/uL (0.00-0.02); NRBC PERCENT 0.0 /100WBC (0.0-0.2); PLATELET COUNT,PLT 471 K/uL (150-400); RED BLOOD CELL COUNT 5.50 M/uL (4.52-5.90); WHITE BLOOD CELL COUNT,WBC 18.01 K/uL (3.9-11.3)
[2025-03-26 18:06] LABS: BLOOD UREA NITROGEN,BUN 18 mg/dL (7.0-18.0); CARBON DIOXIDE,CO2 26.7 mmol/L (21.0-32.0); CHLORIDE,CL 95 mmol/L (98-107); CREATININE 0.9 mg/dL (0.8-1.3); ESTIMATED GFR 116 mL/min (>60); GLUCOSE RANDOM 177 mg/dL (74-106); POTASSIUM,K 4.0 mmol/L (3.5-5.1); SODIUM,NA 133 mmol/L (136-148)
[2025-03-26] MEDS: Iopamidol 755 MG/ML 500 ML Multipack Bottle IVPUSH STA (18:48)
[2025-03-26 19:19] LABS: CORONAVIRUS COVID-19 NAA NEGATIVE (NEGATIVE); INFLUENZA A NAA NEGATIVE (NEGATIVE); INFLUENZA B NAA NEGATIVE (NEGATIVE)
[2025-03-26 20:06] LABS: GLUCOSE,URINE NEGATIVE (NEGATIVE); OCCULT BLOOD,URINE TRACE-INTACT (NEGATIVE)
[2025-03-26 20:17] LABS: APPEARANCE,URINE HAZY
[2025-03-26 20:21] LABS: EPITHELIAL CELLS,URINE FEW (NONE-FEW)
[2025-03-26] MEDS: Meropenem 1 GM SDV IVPUSH ONE (20:49)
[2025-03-26] MEDS: Water For Injection, Sterile 20 ML SDV INJECT ONE (20:50)
[2025-03-26] MEDS: Linezolid 600 MG/300 ML 600 MG in Premix Bag 1 BAG IV ONE (20:50)
[2025-03-26] MEDS: Ondansetron 4 MG/2 ML SDV IVPUSH ONE (20:59)
[2025-03-26] MEDS: Acetaminophen/HYDROcodone 325-10 MG Tab PO ONE (21:09)
== END 2025-03-26 23:45 ==
LOC: MW.ED 16:42
DX: L03.317 Cellulitis of buttock (principal); L02.31 Cutaneous abscess of buttock; R00.0 Tachycardia, unspecified; E11.9 Type 2 diabetes mellitus without complications; Z88.0 Allergy status to penicillin; Z79.4 Long term (current) use of insulin; Z79.899 Other long term (current) drug therapy
CPT/HCPCS: 36415; 71045; 74177; 80048; 81001; 83605; 85025; 87040; 87070; 87075; 87205; 87636; 96361; 96365; 96375; 99285; A4216; A9270; J2020; J2185; J2405; J7030; Q9967